=== PATIENT | female | born 1950 | race Caucasian/White ===

== ENCOUNTER 2017-11-02 19:32 | Inpatient (IN) | payer MEDICARE, OTHER ==
[~2017-11-02] VITALS: Ht 165.1 cm; Wt 82.4 kg
[2017-11-02 19:42] VITALS: BP 113/85; PULSE 104; RESP 20; TEMP 97.9; O2SAT 96
[2017-11-02] MEDS ORDERED: ATOR10TA15 PO (19:51)
[2017-11-02] MEDS ORDERED: HYDR12.57 PO (19:51)
[2017-11-02 21:04] LABS: AUTOMATED NEUTROPHIL # 5.9 TH/MM3 (1.8-7.7); BASOPHIL % 0.3 % (0.0-2.0); EOSINOPHIL # 0.3 TH/MM3 (0-0.4); EOSINOPHIL % 2.4 % (0.0-4.0); HEMATOCRIT 38.1 % (35.0-46.0); HEMO FLAGS DIFF FINAL; LYMPH % 36.3 % (9.0-44.0); MEAN CELL VOLUME 87.8 FL (80.0-100.0); MEAN CORPUSCULAR HEMOGLOBIN 29.2 PG (27.0-34.0); MEAN CORPUSCULAR HGB CONC 33.3 % (32.0-36.0); MONO % 8.2 % (0.0-8.0); NEUT % 52.8 % (16.0-70.0); PLATELET COUNT 255 TH/MM3 (150-450); RED BLOOD COUNT 4.34 MIL/MM3 (4.00-5.30); RED CELL DISTRIBUTION WIDTH 13.4 % (11.6-17.2); WHITE BLOOD COUNT 11.1 TH/MM3 (4.0-11.0)
[2017-11-02 21:17] LABS: ANION GAP 6 MEQ/L (5-15); AST (GOT) 20 U/L (15-37); BICARBONATE 28.2 MEQ/L (21.0-32.0); BLOOD UREA NITROGEN 22 MG/DL (7-18); CHLORIDE 105 MEQ/L (98-107); GLOMERULAR FILTRATION RATE 45 ML/MIN (>89); POTASSIUM 4.6 MEQ/L (3.5-5.1); SODIUM (NA) 139 MEQ/L (136-145)
[2017-11-02 21:21] LABS: ALKALINE PHOSPHATASE 73 U/L (45-117); ALT (GPT) 22 U/L (10-53); TOTAL BILIRUBIN ADULT 0.3 MG/DL (0.2-1.0)
[2017-11-02 21:24] LABS: APTT (PATIENT) 24.5 SEC (24.3-30.1)
--- NOTE | 2017-11-02 22:41 | PD ---
HPI Chief Complaint: Psychiatric Symptoms Time Seen by Provider: 22:34 Travel History International Travel<30 days: No Contact w/Intl Traveler<30days: No Traveled to known affect area: No History of Present Illness HPI 67 YO F with PMH of hyperlipidemia, dependent edema presents to the ED under Schmidt act for psychiatric evaluation. According to the Schmidt act the patient made suicidal statements to her PCP and that she hears voices that tell her to drive into traffic. On presentation she denies suicidal ideation. She states that she is here today after a misunderstanding with her neighbors. She states that she has evidence that these neighbors are harassing her. She is concerned that the police will go into her home and feel the evidence that she has of her neighbors harassment. She denies any psychiatric history. She denies somatic complaints. Denies any illicit drug use. Endorses rare alcohol. PFSH Past Medical History Depression: Yes High Cholesterol: Yes Hypertension: Yes Psychiatric: Yes (DEPRESSION, PTSD PER PT) ?: Not Past Surgical History Hysterectomy: Yes Tonsillectomy: Yes Social History Alcohol Use: No Tobacco Use: No Substance Use: No Allergies-Medications (Allergen,Severity, Reaction): Coded Allergies: codeine (Verified Allergy, Severe, Itching, 11/02/17) latex (Verified Allergy, Severe, Itching, 11/02/17) nickel (Verified Allergy, Severe, Rash, 11/02/17) Reported Meds & Prescriptions Reported Meds & Active Scripts Active Reported Atorvastatin (Atorvastatin Calcium) 10 Mg Tab 10 Mg PO HS Hydrochlorothiazide 12.5 Mg Cap 12.5 Mg PO DAILY Review of Systems Except as stated in HPI: all other systems reviewed are Neg Physical Exam Narrative GENERAL: Well-nourished, well-developed white female in no acute distress. PSYCHIATRIC: + Delusional thought processes. Pressured speech. Perseveration. SKIN: Focused skin assessment warm/dry. HEAD: Normocephalic. EYES: No scleral icterus. No injection or drainage. NECK: Supple, trachea midline. No JVD or lymphadenopathy. CARDIOVASCULAR: Regular rate and rhythm without murmurs, gallops, or rubs. RESPIRATORY: Breath sounds equal bilaterally. No accessory muscle use. GASTROINTESTINAL: Abdomen soft, non-tender, nondistended. MUSCULOSKELETAL: No cyanosis, or edema. BACK: Nontender without obvious deformity. No CVA tenderness. Data Data Last Documented VS Vital Signs Date Time Temp Pulse Resp B/P (MAP) Pulse Ox O2 Delivery O2 Flow Rate FiO2 11/02/17 19:42 97.9 104 20 113/85 (94) 96 Orders Orders Complete Blood Count With Diff (11/02/17 20:05) Comprehensive Metabolic Panel (11/02/17 20:05) Psych Screen (11/02/17 20:05) Drug Screen, Random Urine (11/02/17 20:05) Act Partial Throm Time (Ptt) (11/02/17 20:06) Labs Laboratory Tests Test 11/02/17 20:05 11/02/17 21:35 White Blood Count 11.1 TH/MM3 Red Blood Count 4.34 MIL/MM3 Hemoglobin 12.7 GM/DL Hematocrit 38.1 % Mean Corpuscular Volume 87.8 FL Mean Corpuscular Hemoglobin 29.2 PG Mean Corpuscular Hemoglobin Concent 33.3 % Red Cell Distribution Width 13.4 % Platelet Count 255 TH/MM3 Mean Platelet Volume 9.4 FL Neutrophils (%) (Auto) 52.8 % Lymphocytes (%) (Auto) 36.3 % Monocytes (%) (Auto) 8.2 % Eosinophils (%) (Auto) 2.4 % Basophils (%) (Auto) 0.3 % Neutrophils # (Auto) 5.9 TH/MM3 Lymphocytes # (Auto) 4.0 TH/MM3 Monocytes # (Auto) 0.9 TH/MM3 Eosinophils # (Auto) 0.3 TH/MM3 Basophils # (Auto) 0.0 TH/MM3 CBC Comment DIFF FINAL Differential Comment Activated Partial Thromboplast Time 24.5 SEC Blood Urea Nitrogen 22 MG/DL Creatinine 1.20 MG/DL Random Glucose 112 MG/DL Total Protein 7.7 GM/DL Albumin 4.0 GM/DL Calcium Level 9.1 MG/DL Alkaline Phosphatase 73 U/L Aspartate Amino Transf (AST/SGOT) 20 U/L Alanine Aminotransferase (ALT/SGPT) 22 U/L Total Bilirubin 0.3 MG/DL Sodium Level 139 MEQ/L Potassium Level 4.6 MEQ/L Chloride Level 105 MEQ/L Carbon Dioxide Level 28.2 MEQ/L Anion Gap 6 MEQ/L Estimat Glomerular Filtration Rate 45 ML/MIN Urine Opiates Screen NEG Urine Barbiturates Screen NEG Urine Amphetamines Screen NEG Urine Benzodiazepines Screen NEG Urine Cocaine Screen NEG Urine Cannabinoids Screen NEG MDM Medical Decision Making Medical Screen Exam Complete: Yes Emergency Medical Condition: Yes Differential Diagnosis Adjustment disorder versus anxiety versus bipolar versus depression versus dementia versus electrolyte disorder versus malingering versus mood disorder versus ODD versus psychosis versus PTSD versus schizophrenia versus schizoaffective disorder versus substance-induced mood disorder versus other Narrative Course 67-year-old female presents to the ED under Schmidt act for psychiatric evaluation. According to the Schmidt at the patient made suicidal statements to her physician and stated that she was hearing voices that told her to drive into traffic. On presentation the patient denies any suicidal ideation. She does seem preoccupied with her neighbors and states that they are harassing her and she has evidence in her house. She is afraid that the police are going to take the evidence from her house while she is hospitalized. Her speech is pressured and I suspect these are delusional thoughts. Physical exam is otherwise unremarkable. No concerning abnormalities of the lab work. Patient is medically cleared for psychiatric evaluation. Diagnosis Primary Impression: Medical clearance for psychiatric admission Latisha Estrella Nov 02, 2017 22:41
[2017-11-03 00:56] VITALS: BP 121/68; PULSE 78; RESP 18; O2SAT 99
[2017-11-03 02:30] LABS: BLOOD, URINE NEG (NEG); COMMENT (UR) CULT NOT INDICATED; CULTURE IF INDICATED CULT NOT INDICATED; GLUCOSE,URINE NEG (NEG); KETONE, URINE NEG (NEG); MUCUS URINE FEW /lpf (OCC); NITRITE,URINE NEG (NEG); PH, URINE 6.5 (5.0-8.5); URINE COLOR YELLOW (YELLW/STRAW)
[2017-11-03] MEDS ORDERED: LEXA20TA PO (02:55)
[2017-11-03] MEDS ORDERED: MAGNESIUM HYDROXIDE SUSP 30 ML CUP PO PRN (03:30)
[2017-11-03] MEDS ORDERED: diphenhydrAMINE HCL 50 MG/ML VIAL IM PRN (03:30)
[2017-11-03] MEDS ORDERED: ALUMINUM/MAGNESIUM/SIMETH 30 ML CUP PO PRN (03:30)
[2017-11-03] MEDS ORDERED: ACETAMINOPHEN 325 MG TAB PO PRN (03:30)
[2017-11-03] MEDS ORDERED: diphenhydrAMINE HCL 50 MG CAP PO PRN (03:30)
[2017-11-03] MEDS ORDERED: hydrOXYzine HCL 50 MG TAB PO PRN (03:30)
[2017-11-03 06:14] VITALS: BP 150/93; PULSE 88; RESP 18; TEMP 96.9; O2SAT 94
[2017-11-03] MEDS: HYDROCHLOROTHIAZIDE 12.5 MG CAP PO SCH (08:49)
[2017-11-03] MEDS: ESCITALOPRAM OXALATE 20 MG TAB PO SCH (08:49)
[2017-11-03] MEDS ORDERED: NICOTINE 21 MG/24 HR PATCH T-DERMAL SCH (09:00)
--- NOTE | 2017-11-03 12:40 | PD.CONS ---
HPI Service [facility] Consult Requested By Reason for Consult medical management Primary Care Physician Suhail Godl M.D. Diagnoses: History of Present Illness patient is a 67 y/o female with history of depression, anxiety and hypertension who's been admitted to the psych unit because of suicidal thoughts. at the time of my evaluation she was in no acute distress. she denies any chest pain, sob, nausea or dizziness. d/w the RN and no acute issues since admission. Review of Systems Constitutional: DENIES: Fever, Weight loss, Chills, Night Sweats Eyes: DENIES: Blurred vision, Diplopia, Vision loss, Double Vision Ears, nose, mouth, throat: DENIES: Tinnitus, Vertigo, Throat pain, Epistaxis Respiratory: DENIES: Apneas, Cough, Snoring, Wheezing, Hemoptysis, Sputum production, Shortness of breath Cardiovascular: DENIES: Chest pain, Palpitations, Syncope, Dyspnea on Exertion , PND, Lower Extremity Edema, Orthopnea, Claudication Gastrointestinal: DENIES: Abdominal pain, Black stools, Bloody stools, Constipation, Diarrhea, Nausea, Vomiting, Difficulty Swallowing, Anorexia Genitourinary: DENIES: Urinary frequency, Urgency, Hematuria, Dysuria Musculoskeletal: DENIES: Joint pain, Muscle aches, Stiffness, Joint Swelling Integumentary: DENIES: Rash Neurologic: DENIES: Abnormal gait, Headache, Localized weakness, Paresthesias, Seizures, Speech Problems, Tremor, Poor Balance Psychiatric: COMPLAINS OF: Suicidal Ideation, DENIES: Anxiety, Confusion, Mood changes, Depression, Hallucinations, Agitation, Homicidal Ideation, Delusions Past Family Social History Allergies: Coded Allergies: codeine (Verified Allergy, Severe, Itching, 11/02/17) latex (Verified Allergy, Severe, Itching, 11/02/17) nickel (Verified Allergy, Severe, Rash, 11/02/17) Past Medical History depression hypertension dyslipidemia Past Surgical History hysterectomy facial surgery Reported Medications Atorvastatin (Atorvastatin Calcium) 10 Mg Tab 10 Mg PO HS Hydrochlorothiazide 12.5 Mg Cap 12.5 Mg PO DAILY Active Ordered Medications Current Medications Hydrochlorothiazide (Microzide) 12.5 mg DAILY PO Last administered on t 08:49; Start 11/03/17 at 09:00 Atorvastatin Calcium (Lipitor) 10 mg HS PO ; Start 11/03/17 at 21:00 Escitalopram Oxalate (Lexapro) 20 mg DAILY PO Last administered on 11/03/17t 08 :49; Start 11/03/17 at 09:00 Hydroxyzine HCl (Atarax) 50 mg Q6H PRN PO ANXIETY; Start 11/03/17 at 03:30 Diphenhydramine HCl (Benadryl) 50 mg Q6H PRN PO MILD ANXIETY, EPS; Start at 03:30 Diphenhydramine HCl (Benadryl Inj) 50 mg Q6H PRN IM MILD ANXIETY, EPS; Start 11/03/17 at 03:30 Acetaminophen (Tylenol) 650 mg Q4H PRN PO Pain 1-5 or Temp >101F; Start at 03:30 Magnesium Hydroxide (Milk Of Magnesia Liq) 30 ml DAILY PRN PO CONSTIPATION; Start 11/03/17 at 03:30 Al Hydrox/Mg Hydrox/Simethicone (Mag-Al Plus Susp Liq) 30 ml Q6H PRN PO DYSPEPSIA; Start 11/03/17 at 03:30 Nicotine (Habitrol 21 Mg Patch.24 Hr) 1 patch DAILY T-DERMAL ; Start 11/03/17 at 09:00 Miscellaneous Information 1 HS T-DERMAL ; Start 11/03/17 at 21:00 Social History doesn't smoke. drinks occasionally. Physical Exam Vital Signs Vital Signs Date Time Temp Pulse Resp B/P (MAP) Pulse Ox O2 Delivery O2 Flow Rate FiO2 11/03/17 06:14 96.9 88 18 150/93 (112) 94 11/03/17 04:22 11/03/17 00:56 78 18 121/68 (85) 99 Room Air 11/02/17 19:42 97.9 104 20 113/85 (94) 96 Physical Exam GENERAL: This is a well-nourished, well-developed patient, in no apparent distress. SKIN: No rashes, ecchymoses or lesions. Cool and dry. HEAD: Atraumatic. Normocephalic. No temporal or scalp tenderness. EYES: Pupils equal round and reactive. Extraocular motions intact. No scleral icterus. No injection or drainage. ENT: Nose without bleeding, purulent drainage or septal hematoma. Throat without erythema, tonsillar hypertrophy or exudate. Uvula midline. Airway patent. NECK: Trachea midline. No JVD or lymphadenopathy. Supple, nontender, no meningeal signs. CARDIOVASCULAR: Regular rate and rhythm without murmurs, gallops, or rubs. RESPIRATORY: Clear to auscultation. Breath sounds equal bilaterally. No wheezes , rales, or rhonchi. GASTROINTESTINAL: Abdomen soft, non-tender, nondistended. No hepato-splenomegaly , or palpable masses. No guarding. MUSCULOSKELETAL: Extremities without clubbing, cyanosis, or edema. No joint tenderness, effusion, or edema noted. No calf tenderness. Negative Homans sign bilaterally. NEUROLOGICAL: Awake and alert. Cranial nerves II through XII intact. Motor and sensory grossly within normal limits. Five out of 5 muscle strength in all muscle groups. Normal speech. Laboratory Laboratory Tests Test 11/02/17 20:05 11/02/17 21:35 White Blood Count 11.1 Red Blood Count 4.34 Hemoglobin 12.7 Hematocrit 38.1 Mean Corpuscular Volume 87.8 Mean Corpuscular Hemoglobin 29.2 Mean Corpuscular Hemoglobin Concent 33.3 Red Cell Distribution Width 13.4 Platelet Count 255 Mean Platelet Volume 9.4 Neutrophils (%) (Auto) 52.8 Lymphocytes (%) (Auto) 36.3 Monocytes (%) (Auto) 8.2 Eosinophils (%) (Auto) 2.4 Basophils (%) (Auto) 0.3 Neutrophils # (Auto) 5.9 Lymphocytes # (Auto) 4.0 Monocytes # (Auto) 0.9 Eosinophils # (Auto) 0.3 Basophils # (Auto) 0.0 CBC Comment DIFF FINAL Differential Comment Activated Partial Thromboplast Time 24.5 Blood Urea Nitrogen 22 Creatinine 1.20 Random Glucose 112 Total Protein 7.7 Albumin 4.0 Calcium Level 9.1 Alkaline Phosphatase 73 Aspartate Amino Transf (AST/SGOT) 20 Alanine Aminotransferase (ALT/SGPT) 22 Total Bilirubin 0.3 Sodium Level 139 Potassium Level 4.6 Chloride Level 105 Carbon Dioxide Level 28.2 Anion Gap 6 Estimat Glomerular Filtration Rate 45 Urine Color YELLOW Urine Turbidity CLEAR Urine pH 6.5 Urine Specific [place] 1.015 Urine Protein NEG Urine Glucose (UA) NEG Urine Ketones NEG Urine Occult Blood NEG Urine Nitrite NEG Urine Bilirubin NEG Urine Urobilinogen LESS THAN 2.0 Urine Leukocyte Esterase NEG Urine RBC LESS THAN 1 Urine WBC LESS THAN 1 Urine Mucus FEW Microscopic Urinalysis Comment CULT NOT INDICATED Urine Opiates Screen NEG Urine Barbiturates Screen NEG Urine Amphetamines Screen NEG Urine Benzodiazepines Screen NEG Urine Cocaine Screen NEG Urine Cannabinoids Screen NEG Result Diagram: 11/02/17200411/02/172004 Assessment and Plan Assessment and Plan A/P - depression/ suicidal thoughts- management per psych. -hypertension/ dyslipidemia; resumed home meds [facility] will sign off and see her as needed. thank you for the consult. Discussed Condition With the patient and RN. Eliud Rdz MD Nov 03, 2017 12:40
[2017-11-03 14:17] LABS: BICARBONATE 27.6 MEQ/L (21.0-32.0); POTASSIUM 3.9 MEQ/L (3.5-5.1)
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
[2017-11-03] MEDS: QUEtiapine FUMARATE 25 MG TAB PO SCH ×2 (16:51→21:15)
[2017-11-03] MEDS ORDERED: REMOVE OLD NICOTINE PATCH T-DERMAL SCH (21:00)
[2017-11-03] MEDS ORDERED: ATORVASTATIN 10 MG TAB PO SCH (21:00)
[2017-11-03] MEDS: ATORVASTATIN 10 MG TAB PO SCH (21:15)
[2017-11-04 06:22] VITALS: BP 148/76; PULSE 81; RESP 18; TEMP 97.7; O2SAT 95
[2017-11-04] MEDS: HYDROCHLOROTHIAZIDE 12.5 MG CAP PO SCH (08:22)
[2017-11-04] MEDS: ESCITALOPRAM OXALATE 20 MG TAB PO SCH (08:22)
[2017-11-04] MEDS ORDERED: ESCITALOPRAM OXALATE 20 MG TAB PO SCH (09:00)
[2017-11-04] MEDS ORDERED: HYDROCHLOROTHIAZIDE 12.5 MG CAP PO SCH (09:00)
[2017-11-04] MEDS: QUEtiapine FUMARATE 25 MG TAB PO SCH ×3 (10:14→21:18)
[2017-11-04 11:23] LABS: ANION GAP 6 MEQ/L (5-15); BLOOD UREA NITROGEN 19 MG/DL (7-18); CHLORIDE 105 MEQ/L (98-107); GLOMERULAR FILTRATION RATE 47 ML/MIN (>89); SODIUM (NA) 140 MEQ/L (136-145)
--- NOTE | 2017-11-04 11:25 | PD.PSY.CON ---
Provisional Diagnosis Admission Date Nov 03, 2017 at 03:16 [place]. Brief psychotic disorder F 23 History of Present Illness Service Psychiatry Consult Requested By Dr. Zimmer Reason for Consult Second opinion Primary Care Physician Suhail Gold M.D. HPI Patient is a 67-year-old white female comes here under Schmidt act signed by the [place] [employer] dated 11/02/17 at 1914 hrs. the document reviewed essentially stating. Admitted to Dr. Gold earlier today and currently to me that she wanted to kill herself. She hears voices telling her to drive into traffic she had DNR paperwork and a note stating to donate close. Another node said "no one will help me" patient seen screened in ED, urine toxicology negative. At the present time patient sitting quietly in her room nurse Erlin present throughout session. She is alert oriented anxious white female somewhat heavyset with dyed reddish colored hair. Stating that for the past year and a half there has been a young couple who had lived above her in her building yelling screaming berating her spying on her in surveying her. She states they also made complaints to her landlord to the point she had to relocate. However they followed her into the same harassment. Of interest she states that her sister had her Schmidt acted to [employer] act in January of this year. She was in there for over a week. Was discharged her medications that she stopped taking immediately. Patient denies any prior psychiatric contact or hospitalizations psychotropic medication. She does state she is in place him Lexapro by her primary care physician and that medication did help her. She denies suicidality homicidality to me today she is somewhat vague about voices today but she still firmly believes in the events she is describing. Patient states she has a rare glass of wine. States she has smoked in the past but no marijuana. At this time patient doesn't meet criteria for involuntary psychiatric hospitalization under the Schmidt act. I will do first opinion request second opinion. "She does have capacity to sign for medications. We did discuss medications that would help alleviate both anxiety and so this vigilant that she describes. We'll place her on Seroquel 25 mg at 10 AM 4 PM and at bedtime. Hopefully patient will improve with this medication regimen and time. Will consider having her return to her apartment with her care once she is stable. The patient is a 67 year-old woman, domiciled alone in [place], single, no kids, supported by Social Security, with psychiatric history of depression, anxiety, PTSD, 1 previous psychiatric hospitalization, she is in Lexapro 20 mg prescribed by PCP, medical history lower back pain, who was brought to the hospital on the Schmidt act due to suicidal ideation. Patient was consulted to me for second opinion of involuntary admission. On psychiatric evaluation the patient is calm, cooperative, she is pleasant, but she says that the reason she is here is because her neighbors have been throwing poison to her sprayed in the windows of her house. Patient says that she has stopped playing golf because now all her friends are against her and have alienated against her. Patient says that because all her friends and her sister are planning to kill her she has done or her preparation waiting for her . He reports that even here in the psychiatric unit she feels unsafe "because they have communicated with the staff here and they will kill me here". Review of Systems Constitutional: DENIES: Diaphoretic episodes, Fatigue, Fever, Weight gain, Weight loss, Chills, Dizziness, Change in appetite, Night Sweats Endocrine: DENIES: Abnorml menstrual pattern, Heat/cold intolerance, Polydipsia , Polyuria, Polyphagia Eyes: DENIES: Blurred vision, Diplopia, Eye inflammation, Eye pain, Vision loss , Photosensitivity, Double Vision Ears, nose, mouth, throat: DENIES: Tinnitus, Hearing loss, Vertigo, Nasal discharge, Oral lesions, Throat pain, Hoarseness, Ear Pain, Running Nose, Epistaxis, Sinus Pain, Toothache, Odynophagia Respiratory: DENIES: Apneas, Cough, Snoring, Wheezing, Hemoptysis, Sputum production, Shortness of breath Cardiovascular: DENIES: Chest pain, Palpitations, Syncope, Dyspnea on Exertion , PND, Lower Extremity Edema, Orthopnea, Claudication Gastrointestinal: DENIES: Abdominal pain, Black stools, Bloody stools, Constipation, Diarrhea, Nausea, Vomiting, Difficulty Swallowing, Anorexia Genitourinary: DENIES: Abnormal vaginal bleeding, Dysmenorrhea, Dyspareunia, Sexual dysfunction, Urinary frequency, Urinary incontinence, Urgency, Hematuria , Dysuria, Nocturia, Vaginal discharge Musculoskeletal: DENIES: Joint pain, Muscle aches, Stiffness, Joint Swelling, Back pain, Neck pain Integumentary: DENIES: Abnormal pigmentation, Pruritus, Rash, Nail changes, Breast masses, Breast skin changes, Nipple discharge Hematologic/lymphatic: DENIES: Bruising, Lymphadenopathy Neurologic: DENIES: Abnormal gait, Headache, Localized weakness, Paresthesias, Seizures, Speech Problems, Tremor, Poor Balance Psychiatric: COMPLAINS OF: Delusions, DENIES: Anxiety, Confusion, Mood changes , Depression, Hallucinations, Agitation, Suicidal Ideation, Homicidal Ideation Past Family Social History Coded Allergies: codeine (Verified Allergy, Severe, Itching, 11/02/17) latex (Verified Allergy, Severe, Itching, 11/02/17) nickel (Verified Allergy, Severe, Rash, 11/02/17) Reported Medications Escitalopram (Lexapro) 20 Mg Tab, 20 MG PO DAILY, #30 TAB 0 Refills 11/03/17 Atorvastatin (Atorvastatin) 10 Mg Tab, 10 MG PO HS for Cholesterol Management, # 30 TAB 0 Refills 11/02/17 Hydrochlorothiazide (Hydrochlorothiazide) 12.5 Mg Cap, 12.5 MG PO DAILY, #30 CAP 0 Refills 11/02/17 Current Medications Medications (Trade) Dose Ordered Sig/Brianna Route Start Time Stop Time Status Last Admin (Microzide) 12.5 mg DAILY PO 11/03/17 09:00 11/04/17 08:22 (Lipitor) 10 mg HS PO 11/03/17 21:00 11/03/17 21:15 (Lexapro) 20 mg DAILY PO 11/03/17 09:00 11/04/17 08:22 (Atarax) 50 mg Q6H PRN PO 11/03/17 03:30 (Tylenol) 650 mg Q4H PRN PO 11/03/17 03:30 (Milk Of Magnesia Liq) 30 ml DAILY PRN PO 11/03/17 03:30 (Mag-Al Plus Susp Liq) 30 ml Q6H PRN PO 11/03/17 03:30 (SEROquel) 25 mg DAILY@1000,1600,2200 PO 11/03/17 16:00 11/04/17 10:14 Family Psych History Denies family psychiatric history Social History Patient was born and raised in [place], she lives in [place] alone, she is single, unemployed, supported by Social Security, has no kids, her highest level of education is high school Patient's Strengths (min. 2) Patient verbal I will access healthcare Physical Exam Vital Signs Vital Signs Date Time Temp Pulse Resp B/P (MAP) Pulse Ox O2 Delivery O2 Flow Rate FiO2 11/04/17 06:22 97.7 81 18 148/76 (100) 95 11/03/17 00:56 Room Air I/O 11/04/17 11/04/17 11/05/17 08:00 16:00 00:00 Intake Total 240 ml Balance 240 ml Lab Results Test 11/03/17 13:30 11/04/17 09:45 Blood Urea Nitrogen 17 MG/DL Creatinine 0.92 MG/DL Random Glucose 98 MG/DL Calcium Level 9.5 MG/DL Sodium Level 139 MEQ/L Potassium Level 3.9 MEQ/L Chloride Level 107 MEQ/L Carbon Dioxide Level 27.6 MEQ/L Anion Gap 4 MEQ/L Estimat Glomerular Filtration Rate 61 ML/MIN Mental Status Examination Appearance: Appropriate Consciousness: Alert Orientation: Person, Place, Date/Time, Situation Motor Activity: Normal gait Speech: Unremarkable Language: Adequate Fund of Knowledge: Adequate Attention and Concentration: Adequate Memory: Unremarkable Mood: Sad Affect: Other (decreased range and intensity) Thought Process & Associations: Intact Thought Content: Delusional Hallucination Type: Auditory Delusion Type: Paranoid Suicidal Ideation: Yes (patient made vague suicidal statements to her primary care physician and to local police crime scene technician) Suicidal Plan: Yes Suicidal Intention: Yes (vague) Homicidal Ideation: No Homicidal Plan: No Homicidal Intention: No Insight: Poor Judgment: Poor Assessment & Plan Problem List: (1) Brief psychotic disorder ICD Codes: F23 - Brief psychotic disorder Assessment & Plan: I have seen and examined this patient, reviewed the documentation, I completely agree and concur with Dr. Zimmer's assessment and plan. Consult appreciated. Assessment & Plan Estimated LOS: days Request HC Surrog/Guard Advoc?: No Agustin Conti MD Nov 04, 2017 11:25
[2017-11-04 11:28] LABS: HDL CHOLESTEROL 83.8 MG/DL (40.0-60.0); LDL CHOLESTEROL 104 MG/DL (0-99)
[2017-11-04 13:44] LABS: HEMOGLOBIN A1a 1.6 %; HEMOGLOBIN A1b 1.6 %; HEMOGLOBIN Ao 85.3 %; HEMOGLOBIN P3 3.7 %
--- NOTE | 2017-11-04 14:29 | HHI.PYPN ---
Subjective Chief Complaint: patient psychotic with fixed threatening paranoid delusions Remarks Patient seen in her room with nurse Catrina, chart reviewed, patient compliant medications. Patient calm tolerating the cervical without problems, though her delusions have not diminished at this time. She still feels they are monitoring her and keeping her under surveillance. She continues to feel her sister may be involved with this. However she is also concerned about her pet cat. At this time will increase Seroquel to 50 mg 3 times a day continue to observe. Will have staff attempt to contact patient's neighbor to see if that person can check on patient's cat Review of Systems Except as stated in HPI: all other systems reviewed are Neg Mental Status Examination Appearance: Appropriate Consciousness: Alert Orientation: Person, Place, Date/Time, Situation Motor Activity: Normal gait Speech: Unremarkable Language: Adequate Fund of Knowledge: Adequate Attention and Concentration: Adequate Memory: Unremarkable Mood: Sad Affect: Other (decreased range and intensity) Thought Process & Associations: Intact Thought Content: Delusional Hallucination Type: Auditory Delusion Type: Paranoid Suicidal Ideation: Yes (patient made vague suicidal statements to her primary care physician and to local border police) Suicidal Plan: Yes Suicidal Intention: Yes (vague) Homicidal Ideation: No Homicidal Plan: No Homicidal Intention: No Insight: Poor Judgment: Poor Results Labs Test 11/04/17 09:45 Blood Urea Nitrogen 19 MG/DL Creatinine 1.15 MG/DL Random Glucose 75 MG/DL Calcium Level 9.4 MG/DL Sodium Level 140 MEQ/L Potassium Level 4.0 MEQ/L Chloride Level 105 MEQ/L Carbon Dioxide Level 29.0 MEQ/L Anion Gap 6 MEQ/L Estimat Glomerular Filtration Rate 47 ML/MIN Triglycerides Level 115 MG/DL Cholesterol Level 211 MG/DL LDL Cholesterol 104 MG/DL HDL Cholesterol 83.8 MG/DL Cholesterol/HDL Ratio 2.51 RATIO Vitals/IOs Vital Signs Date Time Temp Pulse Resp B/P (MAP) Pulse Ox O2 Delivery O2 Flow Rate FiO2 11/04/17 06:22 97.7 81 18 148/76 (100) 95 11/03/17 00:56 Room Air Intake and Output 11/04/17 11/04/17 11/05/17 08:00 16:00 00:00 Intake Total 240 ml Balance 240 ml Assessment & Plan Problem List: (1) Brief psychotic disorder ICD Codes: F23 - Brief psychotic disorder Assessment & Plan Estimated LOS: days patient continues quite delusional and psychotic she medication adjustment above Justification for Cont. Inpt. At this time patient will decompensate with placed in a lower level of care Discharge Planning Consider return to patient's mobile home once stabilized Request HC Surrog/Guard Advoc?: No Morgan Zimmer MD Nov 04, 2017 14:29
[2017-11-04 19:04] VITALS: BP 111/61; PULSE 95; RESP 17; TEMP 98.1; O2SAT 96
[2017-11-04] MEDS: ATORVASTATIN 10 MG TAB PO SCH (21:18)
[2017-11-05 05:58] VITALS: BP 125/73; PULSE 86; RESP 16; TEMP 97.7; O2SAT 95
[2017-11-05] MEDS: ESCITALOPRAM OXALATE 20 MG TAB PO SCH (08:40)
[2017-11-05] MEDS: QUEtiapine FUMARATE 25 MG TAB PO SCH ×3 (08:40→21:56)
[2017-11-05] MEDS: HYDROCHLOROTHIAZIDE 12.5 MG CAP PO SCH (08:40)
--- NOTE | 2017-11-05 14:56 | HHI.PYPN ---
Subjective Chief Complaint: patient psychotic with fixed threatening paranoid delusions Remarks Patient was seen and case discussed with nursing. Patient remains with various fixed delusions about her neighbors. She believes that they have been messing with her and somehow stealing items from her locked car without breaking into the car. She denies auditory visual hallucinations. Affect is anxious. Behaving well on the unit Mental Status Examination Appearance: Appropriate Consciousness: Alert Orientation: Person, Place, Date/Time, Situation Motor Activity: Normal gait Speech: Unremarkable Language: Adequate Fund of Knowledge: Adequate Attention and Concentration: Adequate Memory: Unremarkable Mood: Anxious Affect: Anxious, Other (decreased range and intensity) Thought Process & Associations: Intact Thought Content: Delusional Hallucination Type: None Delusion Type: Paranoid (neighbors) Suicidal Ideation: No Suicidal Plan: No Suicidal Intention: No Homicidal Ideation: No Homicidal Plan: No Homicidal Intention: No Insight: Poor Judgment: Poor Results Vitals/IOs Vital Signs Date Time Temp Pulse Resp B/P (MAP) Pulse Ox O2 Delivery O2 Flow Rate FiO2 11/05/17 05:58 97.7 86 16 125/73 (90) 95 11/03/17 00:56 Room Air Intake and Output 11/05/17 11/05/17 11/06/17 08:00 16:00 00:00 Intake Total 240 ml 120 ml Balance 240 ml 120 ml Assessment & Plan Problem List: (1) Brief psychotic disorder ICD Codes: F23 - Brief psychotic disorder Assessment & Plan Continue current treatment plan Justification for Cont. Inpt. Patient would decompensate in a less restrictive setting Request HC Surrog/Guard Advoc?: No Johnson Herring DO Nov 05, 2017 14:56
[2017-11-05] MEDS: ATORVASTATIN 10 MG TAB PO SCH (21:56)
[2017-11-06 06:06] VITALS: BP 119/61; PULSE 82; RESP 17; TEMP 98.4; O2SAT 99
[2017-11-06] MEDS: QUEtiapine FUMARATE 25 MG TAB PO SCH ×3 (09:21→20:43)
[2017-11-06] MEDS: ESCITALOPRAM OXALATE 20 MG TAB PO SCH (09:21)
[2017-11-06] MEDS: HYDROCHLOROTHIAZIDE 12.5 MG CAP PO SCH (09:21)
--- NOTE | 2017-11-06 13:07 | HHI.PYPN ---
Subjective Chief Complaint: patient psychotic with fixed threatening paranoid delusions Remarks Patient was seen and case discussed with nursing. Per glassware selector nursing report patient made statements that her neighbors were trying to contact her over the phone. When asked about this today patient became credulous that somebody said that and denies feeling that way. She remains with her fixed delusions that before admission neighbors were messing with her. Mental Status Examination Appearance: Appropriate Consciousness: Alert Orientation: Person, Place, Date/Time, Situation Motor Activity: Normal gait Speech: Unremarkable Language: Adequate Fund of Knowledge: Adequate Attention and Concentration: Adequate Memory: Unremarkable Mood: Anxious Affect: Anxious, Other (decreased range and intensity) Thought Process & Associations: Intact Thought Content: Delusional Hallucination Type: None Delusion Type: Paranoid (neighbors were messing with her) Suicidal Ideation: No Suicidal Plan: No Suicidal Intention: No Homicidal Ideation: No Homicidal Plan: No Homicidal Intention: No Insight: Poor Judgment: Poor Results Vitals/IOs Vital Signs Date Time Temp Pulse Resp B/P (MAP) Pulse Ox O2 Delivery O2 Flow Rate FiO2 11/06/17 06:06 98.4 82 17 119/61 (80) 99 11/03/17 00:56 Room Air Assessment & Plan Problem List: (1) Brief psychotic disorder ICD Codes: F23 - Brief psychotic disorder Assessment & Plan Continue current treatment plan Justification for Cont. Inpt. Patient will decompensate in a less restrictive setting Request HC Surrog/Guard Advoc?: No Johnson Herring DO Nov 06, 2017 13:07
[2017-11-06 18:43] VITALS: BP 154/83; PULSE 89; RESP 17; TEMP 97.1; O2SAT 99
[2017-11-06] MEDS: ATORVASTATIN 10 MG TAB PO SCH (20:43)
[2017-11-07 06:05] VITALS: BP 127/71; PULSE 84; RESP 18; TEMP 97.1; O2SAT 97
[2017-11-07] MEDS: QUEtiapine FUMARATE 25 MG TAB PO SCH (10:50)
[2017-11-07] MEDS: HYDROCHLOROTHIAZIDE 12.5 MG CAP PO SCH (10:50)
[2017-11-07] MEDS: ESCITALOPRAM OXALATE 20 MG TAB PO SCH (10:51)
--- NOTE | 2017-11-07 14:23 | HHI.PYPN ---
Subjective Chief Complaint: patient psychotic with fixed threatening paranoid delusions Remarks Patient seen in her room with nurse Roberto, patient compliant medications, chart reviewed. Patient overall calm and cooperative, her fixed delusions persist the content the intensity of them is not diminished. Today a challenge though delusions saying the may have been generated by her prior PTSD exposure and developed from there. Patient absolutely denied that. She has no insight into her delusions. I also mentioned the fact that her statements seem quite incredulous and that perhaps they were delusions. This is caused her much increased anxiety and trepidation. She demands to go home today to be with her pet cat. However I feel patient is to meets criteria for this admission. Will increase the Seroquel to 200 mg twice a day this time I also feel patient's diagnosis may be better described is a delusional disorder f 22 Review of Systems Except as stated in HPI: all other systems reviewed are Neg Mental Status Examination Appearance: Appropriate Consciousness: Alert Orientation: Person, Place, Date/Time, Situation Motor Activity: Normal gait Speech: Unremarkable Language: Adequate Fund of Knowledge: Adequate Attention and Concentration: Adequate Memory: Unremarkable Mood: Anxious Affect: Anxious, Other (decreased range and intensity) Thought Process & Associations: Intact Thought Content: Delusional Hallucination Type: None Delusion Type: Paranoid (neighbors were messing with her) Suicidal Ideation: No Suicidal Plan: No Suicidal Intention: No Homicidal Ideation: No Homicidal Plan: No Homicidal Intention: No Insight: Poor Judgment: Poor Results Vitals/IOs Vital Signs Date Time Temp Pulse Resp B/P (MAP) Pulse Ox O2 Delivery O2 Flow Rate FiO2 11/07/17 06:05 97.1 84 18 127/71 (89) 97 Assessment & Plan Problem List: (1) Brief psychotic disorder ICD Codes: F23 - Brief psychotic disorder (2) Delusional disorder ICD Codes: F22 - Delusional disorders Assessment & Plan Estimated LOS: days patient remained psychotic delusional with no insight. Compliant medications. Will increase Seroquel to 200 mg twice a day. At this time I feel patient diagnosis may be better described as a delusional disorder f 22 Justification for Cont. Inpt. At this time patient will decompensate the place to lower level of care Discharge Planning Consider possible return to her mobile home if she improves and stabilizes. Request HC Surrog/Guard Advoc?: No Morgan Zimmer MD Nov 07, 2017 14:23
--- NOTE | 2017-11-07 15:22 | PD.TTN ---
Patient Problems 1. Discharge planning 2. Medication compliance 3. Knowledge deficit 4. Lack of coping skills Progress Toward Goals Provider Present: Dr. Yudi Zimmer Provider Input: Dr. Zimmer's treatment team met to discuss patient's treatment, medication and discharge. Patient continues to present with delusional content. Patient has poor insight into her situation. Patient's medication will be increased. Patient continues to meet criteria Nurse(s) Input: Patient's nurse Roberto reports patient is parnoid. Medication compliant, seclusive to her room. Sleeping and eating ok. Psychiatric Counselors Present: [facility] Input: Patient presents childlike, cooperative, affect blunted. Patient continues to present with delusional content although they are becoming less prominent. Patient is wanting to go home. Patient denies suicidal and homicidal ideation. Patient is eating and sleeping ok. Group Spec/RT/OT/PINZON Present: Sidney Thurman OT Group Spec/RT/OT/PINZON Input: Patient does not attend groups Kristin Baeza [facility] Nov 07, 2017 15:22
[2017-11-07 16:00] VITALS: BP 130/67; PULSE 79; RESP 16; TEMP 98.5; O2SAT 96
[2017-11-07 17:05] VITALS: BP 139/67; PULSE 96; RESP 18; TEMP 98.5; O2SAT 96
[2017-11-07] MEDS: QUEtiapine FUMARATE 100 MG TAB PO SCH (22:12)
[2017-11-07] MEDS: ATORVASTATIN 10 MG TAB PO SCH (22:12)
[2017-11-08] MEDS: HYDROCHLOROTHIAZIDE 12.5 MG CAP PO SCH (09:15)
[2017-11-08] MEDS: QUEtiapine FUMARATE 100 MG TAB PO SCH (09:15)
[2017-11-08] MEDS: ESCITALOPRAM OXALATE 20 MG TAB PO SCH (09:15)
[2017-11-08] MEDS ORDERED: QUET1TAB8 PO (15:16)
[2017-11-08] MEDS ORDERED: HYDR12.57 PO (15:16)
[2017-11-08] MEDS ORDERED: LIPI10TA PO (15:16)
[2017-11-08] MEDS ORDERED: ESCI20TA PO (15:16)
--- NOTE | 2017-11-08 15:20 | HHI.DS ---
Psychiatry Discharge Summary Inpatient Psychiatric care?: Yes Advance Directive: Yes Mental Health AdvanceDirective: No Health Care Proxy: No Admission Admission Date Nov 03, 2017 at 03:16 Admission Diagnosis: (1) Delusional disorder ICD Code: F22 - Delusional disorders Brief History Patient is a 67-year-old white female comes here under Schmidt act signed by the [place] [employer] [facility] dated 11/02/17 at 1914 hrs. the document reviewed essentially stating. Admitted to Dr. Gold earlier today and currently to me that she wanted to kill herself. She hears voices telling her to drive into traffic she had DNR paperwork and a note stating to donate close. Another node said "no one will help me" patient seen screened in ED, urine toxicology negative. At the present time patient sitting quietly in her room nurse Erlin present throughout session. She is alert oriented anxious white female somewhat heavyset with dyed reddish colored hair. Stating that for the past year and a half there has been a young couple who had lived above her in her building yelling screaming berating her spying on her in surveying her. She states they also made complaints to her landlord to the point she had to relocate. However they followed her into the same harassment. Of interest she states that her sister had her Schmidt acted to [employer] [facility] in January of this year. She was in there for over a week. Was discharged her medications that she stopped taking immediately. Patient denies any prior psychiatric contact or hospitalizations psychotropic medication. She does state she is in place him Lexapro by her primary care physician and that medication did help her. She denies suicidality homicidality to me today she is somewhat vague about voices today but she still firmly believes in the events she is describing. Patient states she has a rare glass of wine. States she has smoked in the past but no marijuana. At this time patient doesn't meet criteria for involuntary psychiatric hospitalization under the Schmidt act. I will do first opinion request second opinion. "She does have capacity to sign for medications. We did discuss medications that would help alleviate both anxiety and so this vigilant that she describes. We'll place her on Seroquel 25 mg at 10 AM 4 PM and at bedtime. Hopefully patient will improve with this medication regimen and time. Will consider having her return to her apartment with her care once she is stable. The patient is a 67 year-old woman, domiciled alone in [place], single, no kids, supported by Social Security, with psychiatric history of depression, anxiety, PTSD, 1 previous psychiatric hospitalization, she is in Lexapro 20 mg prescribed by PCP, medical history lower back pain, who was brought to the hospital on the Schmidt act due to suicidal ideation. Patient was consulted to me for second opinion of involuntary admission. On psychiatric evaluation the patient is calm, cooperative, she is pleasant, but she says that the reason she is here is because her neighbors have been throwing poison to her sprayed in the windows of her house. Patient says that she has stopped playing golf because now all her friends are against her and have alienated against her. Patient says that because all her friends and her sister are planning to kill her she has done or her preparation waiting for her . He reports that even here in the psychiatric unit she feels unsafe "because they have communicated with the staff here and they will kill me here". Tobacco Use In Past 30 Days: No Tobacco Past 30 Days Alcohol Use: Never Hospital Course Patient's hospitalization was uneventful, she show compliance medication from day 1. Her affect stabilized stabilized. However her fixed delusions remained fixed. She showing no insight into that. However she does denies suicidality homicidality voices or visions. He does believe that delusions at times talk to her. She does have her own apartment, she is able to care for herself. She has been independent with all activities here on the unit. Patient does have a delusional disorder I feel she has reached maximum benefit of this hospitalization. She is willing to continue her psychiatric medications. She is willing to follow-up with mental health services in the community. Thus patient will be discharged today Rx 1 month to follow-up with [facility] Results Blood Pressure 139 / 67 Vital Signs Date Time Temp Pulse Resp B/P (MAP) Pulse Ox O2 Delivery O2 Flow Rate FiO2 11/07/17 17:05 98.5 96 18 139/67 (91) 96 Laboratory Results Test 11/04/17 09:45 Cholesterol Level 211 MG/DL (120-200) HDL Cholesterol 83.8 MG/DL (40.0-60.0) Hemoglobin A1c 5.5 % (4.3-6.0) LDL Cholesterol 104 MG/DL (0-99) Triglycerides Level 115 MG/DL (42-150) Summary of Procedures None done Pending results at discharge: No Medications # of Antipsychotic meds at D/C: 1 Approp Antipsych med options 1 - Minimum of three failed multiple trials of monotherapy. 2 - Documented plan to taper to monotherapy due to previous use of multiple meds OR cross-taper in progress at D/C. 3 - Documentation of augmentation of Clozapine. 4 - Justification other than those listed in allowable values 1-3, document here : Discharge Discharge Date: Nov 08, 2017 Discharge Diagnosis: (1) Delusional disorder Diagnosis: Principal ICD Code: F22 - Delusional disorders Pt Condition on Discharge: Stable Discharge Disposition: Discharge Home Discharge Instructions Diet Instructions: As Tolerated, No Restrictions Activities you can perform: Regular-No Restrictions Scheduled Appointment: karl Discharge Time > 30 minutes Mental Status Examination Appearance: Appropriate Consciousness: Alert Orientation: Person, Place, Date/Time, Situation Motor Activity: Normal gait Speech: Unremarkable Language: Adequate Fund of Knowledge: Adequate Attention and Concentration: Adequate Memory: Unremarkable Mood: Anxious Affect: Anxious, Other (decreased range and intensity) Thought Process & Associations: Intact Thought Content: Delusional Hallucination Type: None Delusion Type: Paranoid (neighbors were messing with her) Suicidal Ideation: No Suicidal Plan: No Suicidal Intention: No Homicidal Ideation: No Homicidal Plan: No Homicidal Intention: No Insight: Poor Judgment: Poor Discharge/Advance Care Plan Health Problems: (1) Brief psychotic disorder (2) Delusional disorder Goals to promote your health * To prevent worsening of your condition and complications * To maintain your health at the optimal level Directions to meet your goals Take your medications as prescribed Follow your dietary instruction Follow activity as directed Keep your appointments as scheduled Take your immunizations and boosters as scheduled If your symptoms worsen call your PCP, if no PCP go to Urgent Care Center or Emergency Room For 20/06 questions related to your inpatient stay or results of tests pending at discharge, please contact Dr. Morgan Zimmer at Smoking is Dangerous to Your Health. Avoid second hand smoking Morgan Zimmer MD Nov 08, 2017 15:20
== END 2017-11-08 18:45 | disposition home or self-care (01) | DRG 885 ==
LOC: NEDAMB 19:32 → NEDA 11-03 03:16 → H260 11-03 04:30
PROVIDERS: ADMIT Psychiatry & Neurology Psychiatry; ATTEND Psychiatry & Neurology Psychiatry
DX: F23 Brief psychotic disorder (principal); F22 Delusional disorders; I10 Essential (primary) hypertension; E78.5 Hyperlipidemia, unspecified; Z88.5 Allergy status to narcotic agent; Z91.040 Latex allergy status
CPT/HCPCS: 80048; 80053; 80061; 80307; 81001; 83036; 85025; 85730; 99285